=== PATIENT | male | born 1990 | race African-American/Black ===

== ENCOUNTER 2018-07-10 23:27 | Emergency (ER) | payer OTHER ==
[~2018-07-10] VITALS: Ht 170.2 cm; Wt 81.6 kg
[2018-07-10 23:50] VITALS: BP 123/76
--- NOTE | 2018-07-10 23:53 | NUR ---
ER Nurse Note: Pt came from home c/o toothache in the upper right jaw. Pt stated 8/10 throbbing pain d/t chipped tooth and nerve pain. Pt a&ox4, VSS, no signs of distress. Pt stated he is schedule to see his denitst on July 13.
[2018-07-10] MEDS ORDERED: HYDROCODON-ACE1 EA15 ORAL (23:59)
[2018-07-10] MEDS ORDERED: AMOXICILLIN500 MG ORAL (23:59)
[2018-07-10] MEDS ORDERED: IBUPROFEN600 MG ORAL (23:59)
--- NOTE | 2018-07-11 | Emergency Room Report ---
History of Present Illness General Chief Complaint: Toothache Source: Patient Present Illness HPI Is a 28-year-old male with no past mental history. He present with dental pain. Most the pain as a right upper jaw. Pain throbbing nature. Ongoing for the last 2 weeks. Worse at night. Worse with eating. Denies any fever chills. Denies any nausea vomiting. Pain is 8 out of 10. Scheduled to see a dentist on July 13 when his insurance kicked in. Allergies: Coded Allergies: No Known Allergies (Unverified , 07/10/18) Patient History Past Medical History: see triage record, old chart reviewed Past Surgical History: none Pertinent Family History: none Social History: Denies: smoking Immunizations: other Reviewed Nursing Documentation: PMH: Agreed; PSxH: Agreed Nursing Documentation-PMH Past Medical History: No Stated History Review of Systems Eye: Denies: eye pain, blurred vision ENT: Denies: ear pain, nose congestion, throat swelling Respiratory: Denies: cough, shortness of breath Cardiovascular: Denies: chest pain, palpitations Gastrointestinal: Denies: abdominal pain, diarrhea, nausea, vomiting Musculoskeletal: Denies: back pain, joint pain Skin: Denies: rash Neurological: Denies: headache, numbness Endocrine: Denies: increased thirst, increased urine Hematologic/Lymphatic: Denies: easy bruising All Other Systems: negative except mentioned in HPI Physical Exam Vital Signs Date Time Temp Pulse Resp B/P (MAP) Pulse Ox O2 Delivery O2 Flow Rate FiO2 07/10/18 23:41 98.4 67 16 123/76 95 Room Air vitals normal Sp02 EP Interpretation: reviewed, normal General Appearance: well appearing, no apparent distress, alert Head: normocephalic, atraumatic Eyes: bilateral eye PERRL, bilateral eye EOMI ENT: hearing grossly normal, normal pharynx, other - Right upper third molar is decayed to the nub. Tender to percussion. Neck: full range of motion, supple, no meningismus Respiratory: chest non-tender, lungs clear, normal breath sounds Cardiovascular #1: regular rate, rhythm, no murmur Gastrointestinal: normal bowel sounds, non tender, no mass, no organomegaly, no bruit, non-distended Musculoskeletal: back normal, gait/station normal, normal range of motion Psychiatric: mood/affect normal Skin: warm/dry Medical Decision Making Diagnostic Impression: Primary Impression: Toothache ER Course Patient with dental pain secondary to decay and possible infection. No abscess to I and D this will discharge home. Last Vital Signs Date Time Temp Pulse Resp B/P (MAP) Pulse Ox O2 Delivery O2 Flow Rate FiO2 07/10/18 23:41 98.4 67 16 123/76 95 Room Air Status: unchanged Disposition: HOME, SELF-CARE Condition: Stable Scripts Ibuprofen* (MOTRIN*) 600 Mg Tablet 600 MG ORAL THREE TIMES A DAY, #30 TAB 0 Refills Prov: Monico Weinstein MD 07/10/18 Hydrocodone/Acetaminophen 5-325* (HYDROCODONE/ACETAMINOPHEN 5-325*) 1 Each Tablet 1 TAB ORAL Q6H PRN for For Pain, #10 TAB 0 Refills Prov: Monico Weinstein MD 07/10/18 Amoxicillin* (AMOXIL*) 500 Mg Capsule 500 MG ORAL THREE TIMES A DAY, #21 CAP Prov: Monico Weinstein MD 07/10/18 Patient Instructions: Dental Pain Additional Instructions: Follow-up with dentist [facility]. Return if worse. Monico Weinstein MD Jul 11, 2018 00:00
[2018-07-11 00:10] VITALS: BP 123/76
--- NOTE | 2018-07-11 00:10 | NUR ---
ER Nurse Note: Pt seen, treated, medically cleared for discharge by ERMD. Discharge instructions given with repeat verbazliaion by pt. Instructed pt to follow up with primary care provider within one week. Pt a&ox4, VSS, no signs of distress. ID band removed. Pt left with all belongings with steady gait via own transportation.
== END 2018-07-11 00:10 | disposition home or self-care (01) ==
LOC: EMR 23:45
DX: K08.89 Other specified disorders of teeth and supporting structures (principal); R68.84 Jaw pain
CPT/HCPCS: 99281